=== PATIENT | male | born 1960 | race Caucasian/White ===

== ENCOUNTER 2018-06-16 15:20 | Emergency (ER) | payer OTHER ==
[2018-06-16] MEDS: DIPHTH/TET/ACEL PERTUSS (ADULT) 0.5 ML VIAL IM* (17:12)
[2018-06-16] MEDS: LIDOCAINE 2% (MDV) 20 ML INJ INJ (17:12)
== END 2018-06-16 18:47 | disposition home or self-care (01) ==
LOC: FTE 15:20
DX: S61.012A Laceration without foreign body of left thumb without damage to nail, initial encounter (principal); I10 Essential (primary) hypertension; W31.2XXA Contact with powered woodworking and forming machines, initial encounter; Y92.89 Other specified places as the place of occurrence of the external cause; Z23 Encounter for immunization
CPT/HCPCS: 12002; 73140; 90471; 90715; 99283-25